=== PATIENT | female | born 1955 | race Caucasian/White ===

== ENCOUNTER 2018-04-19 07:40 | Emergency (ER) | payer BC ==
[~2018-04-19] VITALS: Ht 157.5 cm; Wt 81.7 kg
[~2018-04-19 07:40] MED LIST: BEDSIDE COMMODE; CALCNI; LACT10SY PO; LORA1 PO; LOSA25 PO; NAPR550 PO; OXYACE5T PO; WALKER
[2018-04-19 08:10] LABS: BASOPHILS ABSOLUTE AUTO 0.01 K/mm3 (0.00-0.23); BASOPHILS PERCENT AUTO 0 % (0-2); EOSINOPHILS ABSOLUTE AUTO 0.03 K/mm3 (0.00-0.68); EOSINOPHILS PERCENT AUTO 0 % (0-6); Hematocrit 52.3 % (33.0-51.0); IMMATURE GRAN ABSOLUTE AUTO 0.02 K/mm3 (0.00-0.10); IMMATURE GRAN PERCENT AUTO 0 % (0-1); LYMPHOCYTES ABSOLUTE AUTO 3.62 K/mm3 (0.84-5.20); LYMPHOCYTES PERCENT AUTO 37 % (21-46); MONOCYTES ABSOLUTE AUTO 0.45 K/mm3 (0.16-1.47); MONOCYTES PERCENT AUTO 5 % (4-13); Mean Corpuscular HGB 31.9 pg (26.0-34.0); Mean Corpuscular HGB Conc 34.4 g/dL (31.5-36.5); Mean Corpuscular Volume 93 fL (80-100); Mean Platelet Volume 10.9 fL (9.1-12.4); NEUTROPHILS ABSOLUTE AUTO 5.58 K/mm3 (1.96-9.15); NEUTROPHILS PERCENT AUTO 58 % (41-73); Platelet Count 267 K/mm3 (150-400); RDW Coefficient Variation 12.5 % (11.7-14.2); RDW Standard Deviation 42.5 fL (35.1-46.3); Red Blood Cell Count 5.64 M/mm3 (3.80-5.20); White Blood Cell Count 9.71 K/mm3 (4.00-11.30)
[2018-04-19 08:22] LABS: Anion Gap 10 mmol/L (6-16); Blood Urea Nitrogen 15 mg/dL (8-24); CO2, Blood 24 mmol/L (21-32); Calcium, Blood 8.8 mg/dL (8.5-10.1); Chloride, Blood 104 mmol/L (98-108); Creatinine, Blood 0.68 mg/dL (0.40-1.00); Glomerular Filtration Rate >60 (60-); Glucose, Blood 149 mg/dL (70-99); Potassium, Blood 3.9 mmol/L (3.5-5.5); Sodium, Blood 138 mmol/L (136-145)
[2018-04-19] MEDS ORDERED: EPIPEN0.3 MG/0.3 INJ (09:29)
[2018-04-19] MEDS ORDERED: Pepcid20 MG PO (09:29)
[2018-04-19] MEDS ORDERED: Prednisone20 MG PO (09:29)
[2018-04-19] MEDS ORDERED: BENADRYL25 MG PO (09:29)
== END 2018-04-19 10:03 | disposition home or self-care (01) ==
LOC: ER 07:40
PROVIDERS: Emergency Medicine
DX: T88.6XXA Anaphylactic reaction due to adverse effect of correct drug or medicament properly administered, initial encounter (principal); T36.0X5A Adverse effect of penicillins, initial encounter; I10 Essential (primary) hypertension; F17.200 Nicotine dependence, unspecified, uncomplicated; Z79.899 Other long term (current) drug therapy; Z79.891 Long term (current) use of opiate analgesic
CPT/HCPCS: 80048; 82947; 85025; 87081; 87430; 93005; 93010; 96374; 96375; 99285-25; J1200; J2930; J7030

== ENCOUNTER 2018-05-08 09:18 | Day surgery (SDC) | payer BC ==
[~2018-05-08 09:18] MED LIST changes: +BENADRYL25 MG PO; +EPIPEN0.3 MG/0.3 INJ; +Pepcid20 MG PO; +Prednisone20 MG PO
[2018-05-08 11:46] LABS: Performing Lab VERACYTE; Test Name FNA
[2018-05-11 16:08] LABS: Result SEE PATHOTH RESULTS
== END 2018-05-08 22:49 | disposition home or self-care (01) ==
LOC: US 09:18
PROVIDERS: Otolaryngology
DX: E04.1 Nontoxic single thyroid nodule (principal)
CPT/HCPCS: 10005

== ENCOUNTER → 2024-11-08 | Outpatient (CLI) | payer OTHER ==
[2024-11-08 14:30] LABS: Calcium, Urine <5.0 mg/dL (< 17.5); Calcium, Urine Calculation Unable to Calculate mg/24hrs (42.0-353.0)
== END | disposition home or self-care (01) ==
LOC: LAB SHORT 08:30 → LAB 08:30 → LAB FUT 10-26 10:55
PROVIDERS: Specialist
DX: M81.0 Age-related osteoporosis without current pathological fracture (principal)
CPT/HCPCS: 81050; 82340